=== PATIENT | male | born 1940 | race African-American/Black ===

== ENCOUNTER 2017-09-16 15:01 | Emergency (ER) | payer MEDICARE, BC | END 2017-09-16 15:44 | disposition home or self-care (01) | LOC: E/R 15:01 | DX: Z71.1 Person with feared health complaint in whom no diagnosis is made (principal) | CPT/HCPCS: 99282 ==

== ENCOUNTER 2017-10-23 15:35 | Emergency (ER) | payer MEDICARE, BC ==
[2017-10-23] MEDS: AL HYDROX/MG HYDROX/SIMETH 30 ML CUP PO (17:26)
[2017-10-23 17:40] LABS: ADD MAN DIFF? NO
[2017-10-23 17:41] LABS: WHITE BLOOD COUNT 6.2 10^3/ul (4.8-10.8)
[2017-10-23 17:41] LABS: BASOPHILS % 0.5 % (0.0-2.0); EOSINOPHILS # 0.4 10^3/ul (0.0-0.5); EOSINOPHILS % 5.8 % (0.0-7.0); HEMATOCRIT 41.8 % (42.0-52.0); LYMPHOCYTES # 1.4 10^3/ul (0.8-2.9); LYMPHOCYTES % 22.9 % (15.0-51.0); MEAN CORPUSCULAR HEMOGLOBIN 29.6 pg (29.0-33.0); MEAN CORPUSCULAR HGB CONC 33.5 g/dl (32.0-37.0); MEAN CORPUSCULAR VOLUME 88.4 fl (82.0-101.0); MEAN PLATELET VOLUME 10.1 fl (7.4-10.4); MONOCYTE # 0.5 10^3/ul (0.3-0.9); MONOCYTES % 8.5 % (0.0-11.0); NEUTROPHIL # 3.9 10^3/ul (1.6-7.5); PLATELET COUNT 253 10^3/UL (140-415); RED BLOOD COUNT 4.73 10^6/ul (4.70-6.10); RED CELL DISTRIBUTION WIDTH 13.1 % (11.5-14.5)
[2017-10-23 18:00] LABS: ALANINE AMINOTRANSFERASE 38 IU/L (13-69); ALBUMIN 3.9 g/dl (3.3-4.9); ALBUMIN/GLOBULIN RATIO 1.18; ALKALINE PHOSPHATASE 81 IU/L (42-121); ANION GAP 15 (8-16); ASPARTATE AMINO TRANSFERASE 22 IU/L (15-46); BILIRUBIN,INDIRECT 0.5 mg/dl (0-1.1); BILIRUBIN,TOTAL 0.5 mg/dl (0.2-1.3); BLOOD UREA NITROGEN 13 mg/dl (7-20); CALCIUM 8.8 mg/dl (8.4-10.2); CARBON DIOXIDE 24 mmol/L (21-31); CHLORIDE 110 mmol/L (97-110); CREATININE 0.76 mg/dl (0.61-1.24); GLUCOSE 107 mg/dl (70-220); LIPASE 28 U/L (23-300); POTASSIUM 4.4 mmol/L (3.5-5.1); SODIUM 145 mmol/L (135-144); TOTAL PROTEIN 7.2 g/dl (6.1-8.1)
== END 2017-10-23 18:54 | disposition home or self-care (01) ==
LOC: FTE 15:35
DX: R43.9 Unspecified disturbances of smell and taste (principal)
CPT/HCPCS: 80053; 83690; 85025; 99283

== ENCOUNTER 2018-05-30 15:32 | Emergency (ER) | payer MEDICARE, BC, OTHER | END 2018-05-30 19:32 | disposition home or self-care (01) | LOC: E/R 15:32 | DX: Z00.00 Encounter for general adult medical examination without abnormal findings (principal) | CPT/HCPCS: 93005; 99282 ==

== ENCOUNTER 2018-06-20 15:40 | Emergency (ER) | payer MEDICARE, BC, OTHER | END 2018-06-20 16:55 | disposition home or self-care (01) | LOC: FTE 15:40 | DX: E04.1 Nontoxic single thyroid nodule (principal) | CPT/HCPCS: 99282 ==